=== PATIENT | male | born 1955 | race Caucasian/White ===

== ENCOUNTER 2019-12-27 15:46 | Observation (INO) ==
[2019-12-27] MEDS ORDERED: *HR* Midazolam HCl 2 MG/2 ML VIAL ONE (15:52)
[2019-12-27] MEDS ORDERED: *HR* FentaNYL (PF) 100 MCG/2 ML VIAL ONE (15:52)
[2019-12-27] MEDS ORDERED: *HR* Heparin 10,000 UNIT/10 ML VIAL ONE (15:53)
[2019-12-27] MEDS ORDERED: Nitroglycerin 1,000 MCG/10 ML VIAL IV ONE (15:53)
[2019-12-27] MEDS ORDERED: ISOVUE-370 200 ML INFUS..BTL ONE (15:53)
[2019-12-27] MEDS ORDERED: 0.9 % Sodium Chloride 2,000 ML ONE (15:53)
[2019-12-27] MEDS ORDERED: Heparin 1,000 UNITS/500 mL 500 ML ONE (15:53)
[2019-12-27] MEDS ORDERED: Perflutren Lipid Microsphere 1.3 ML in 0.9 % Sodium Chloride 8.7 ML IVP PRN (17:12)
[2019-12-27] MEDS ORDERED: Naloxone 0.4 MG/ML INJ IVP PRN (17:41)
[2019-12-27] MEDS ORDERED: Ondansetron 4 MG/2 ML VIAL IVP PRN (17:41)
[2019-12-27] MEDS ORDERED: Acetaminophen 325 MG TABLET PO PRN (17:41)
[2019-12-27] MEDS: Ipratropium/Albuterol Neb 3 ML IH SCH (21:48)
[2019-12-28 02:01] LABS: Basophils % 0.2 %; Eosinophils % 0.2 %; Hematocrit 37.2 % (37.5-50.1); Hemoglobin 12.1 g/dL (12.9-16.9); Immature Granulocytes % 0.1 % (0-4); Lymphocytes # 1.4 K/mcL (0.6-4.6); Lymphocytes % 16.6 %; Mean Corpuscular HGB Conc 32.5 g/dL (31.6-35.5); Mean Corpuscular Volume 92.3 fL (83.0-100.0); Mean Platelet Volume 10.4 fL (9.4-12.4); Monocytes # 1.2 K/mcL (0.0-1.3); Monocytes % 14.3 %; Neutrophils # 5.8 K/mcL (1.6-8.9); Platelet Count 146 K/mcL (140-400); Red Blood Count 4.03 M/mcL (4.19-5.50); Red Cell Distribution Width 14.6 % (11.5-14.5); Segmented Neutrophils % 68.6 %; White Blood Count 8.5 K/mcL (4.3-11.1)
[2019-12-28 02:12] LABS: BUN/Creatinine Ratio 14 (6-26); Blood Urea Nitrogen 9 mg/dL (8-23); Calcium 8.3 mg/dL (8.6-10.3); Carbon Dioxide 22 mEq/L (23-29); Chloride 109 mEq/L (98-107); Chol/HDL Ratio 3.2 (0-4.9); Cholesterol 101 mg/dL (< 200); Glucose 91 mg/dL (70-105); HDL Cholesterol 32 mg/dL (40-59); LDL Cholesterol,Calculated 57 mg/dL (< 100); Magnesium 1.6 mg/dL (1.6-2.6); Osmolality,Calculated 286 (280-300); Potassium 3.5 mEq/L (3.5-5.1); Sodium 139 mEq/L (136-145); Triglycerides 58 mg/dL (< 150); eGFR For African Americans > 60 (> 60); eGFR For Non-African Americans > 60 (> 60)
[2019-12-28] MEDS: Ipratropium/Albuterol Neb 3 ML IH SCH ×3 (03:54→15:40)
[2019-12-28] MEDS ORDERED: methIMAzole 5 MG TABLET PO SCH (09:00)
[2019-12-28] MEDS ORDERED: Colchicine 0.6 MG TABLET PO SCH (10:30)
[2019-12-28] MEDS: Aspirin 325 MG TABLET PO SCH ×2 (10:50→14:13)
[2019-12-28 16:20] VITALS: BP 128/88
[2019-12-28] MEDS ORDERED: Ibuprofen 600 MG TABLET PO SCH (17:33)
== END 2019-12-28 18:00 | disposition home or self-care (01) ==
LOC: INTOOBSV 16:41 → ICNU 16:41 → SUATTDRO 16:41 → 2ANU 17:44
PROVIDERS: ADMIT Internal Medicine Cardiovascular Disease; ATTEND Internal Medicine